=== PATIENT | female | born 2000 | race Caucasian/White ===

== ENCOUNTER 2020-07-21 23:45 | Emergency (ER) | payer MEDICAID ==
[~2020-07-21] VITALS: Ht 167.6 cm; Wt 81.6 kg
[2020-07-21 23:49] VITALS: BP 113/59
--- NOTE | 2020-07-21 23:52 | NUR ---
TO LOBBY A/W BED AMBULATORY
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
--- NOTE | 2020-07-22 01:15 | NUR ---
PT AMBULATED WITH A LIMP GAIT TO BED 11.
[2020-07-22] MEDS ORDERED: KETOROLAC 60 MG/2 ML VIAL IM ONE (01:30)
--- NOTE | 2020-07-22 01:32 | NUR ---
CONTACTED ADINA GODINEZ TO MAKE A INCIDENT REPORT. CASE # [id number] PER DISPATCH, WILL SEND A PACK OUT OPERATOR TO GET THE INCIDENT REPORT.
--- NOTE | 2020-07-22 01:40 | NUR ---
ADINA OFFICER AT BEDSIDE SPEAKING TO PTLindy
--- NOTE | 2020-07-22 02:00 | NUR ---
PT TAKEN TO CT VIA W/C.
--- NOTE | 2020-07-22 02:24 | NUR ---
PT RETURNED BACK FROM CT VIA W/C.
--- NOTE | 2020-07-22 02:30 | NUR ---
REEVALUATED PTS PAIN. PAIN LEVEL DECREASED.
[2020-07-22] MEDS ORDERED: IBUP-2213 PO (03:27)
[2020-07-22 03:47] VITALS: BP 103/60
== END 2020-07-22 03:47 | disposition home or self-care (01) ==
LOC: MED 23:45
DX: S70.01XA Contusion of right hip, initial encounter (principal); F17.200 Nicotine dependence, unspecified, uncomplicated; Y09 Assault by unspecified means; Y93.89 Activity, other specified; Y92.89 Other specified places as the place of occurrence of the external cause; Y99.8 Other external cause status
CPT/HCPCS: 72192; 73501; 96372; 99284; J1885

== ENCOUNTER 2020-09-05 09:47 | Emergency (ER) | payer MEDICAID ==
[~2020-09-05] VITALS: Ht 152.4 cm; Wt 91.6 kg
[~2020-09-05 09:47] MED LIST: IBUP-2213 PO
[2020-09-05 10:00] VITALS: BP 118/64
--- NOTE | 2020-09-05 10:05 | NUR ---
PT AMBULATED TO BED 5 AT THIS TIME.
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
--- NOTE | 2020-09-05 10:22 | NUR ---
PT CURRENTLY IN RESTROOM ACTIVELY VOMITTING
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
[2020-09-05] MEDS ORDERED: ONDANSETRON 4 MG ODT PO ONE ×2 (10:30→12:50)
--- NOTE | 2020-09-05 10:32 | NUR ---
ENGINEERING DEPARTMENT CHAIR BEDSIDE WITH PT
[2020-09-05 10:44] LABS: BASOPHILS # (AUTO) 0.1 K/uL (0.00-0.22); BASOPHILS % (AUTO) 1.1 % (0.0-2.0); EOSINOPHILS # (AUTO) 0.1 K/uL (0-0.4); EOSINOPHILS % (AUTO) 1.2 % (0.0-4.0); HEMATOCRIT 41.3 % (36-48); HEMOGLOBIN 13.8 g/dL (12.0-16.0); LYMPHOCYTES # (AUTO) 1.1 K/uL (2.5-16.5); LYMPHOCYTES % (AUTO) 17.4 % (20.5-51.1); MEAN CORPUSCULAR HEMOGLOBIN 30 pg (27-31); MEAN CORPUSCULAR HGB CONC 33 g/dL (33-37); MEAN CORPUSCULAR VOLUME 89.9 fL (80-94); MONOCYTES # (AUTO) 0.6 K/uL (0.8-1.0); MONOCYTES % (AUTO) 8.5 % (1.7-9.3); NEUTROPHILS # (AUTO) 4.7 K/uL (1.8-7.7); NEUTROPHILS % (AUTO) 71.8 % (42.2-75.2); PLATELET COUNT (AUTO) 264 K/uL (140-450); RED BLOOD CELL COUNT(AUTO) 4.59 MIL/uL (4.20-5.40); RED CELL DISTRIBUTION WIDTH 14.4 % (11.6-13.7); WHITE BLOOD COUNT (AUTO) 6.5 K/uL (4.5-11.0)
[2020-09-05 11:02] LABS: ALBUMIN 4.7 g/dL (3.4-5.0); ANION GAP 17.2 (8-16); ASPARTATE AMINOTRANSFERASE 61 U/L (15-37); CARBON DIOXIDE 24.1 mmol/L (21-32); CHLORIDE 102 mmol/L (98-107); CREATININE 0.9 mg/dL (0.6-1.3); GFR ARICAN-AMERICAN 103 mL/min (>90); GLUCOSE 101 mg/dL (74-106); POTASSIUM 4.3 mmol/L (3.5-5.1); SODIUM SERUM 139 mmol/L (136-145); TOTAL BILIRUBIN 0.5 mg/dL (0.0-1.0); UREA NITROGEN, BLOOD 12 mg/dL (7-18)
[2020-09-05 11:07] LABS: ACETAMINOPHEN < 0.5 ug/ml (10-30); SALICYLATE < 2.8 mg/dL (2.8-20.0)
--- NOTE | 2020-09-05 11:57 | NUR ---
PT RESTING WITH EYES CLOSED IN BED CURRENTLY COVERED WITH BLANKET. EQUAL CHEST RISE AND FALL NOTED. VITAL SIGNS STABLE. SISTER BEDSIDE WITH PT. BED IN LOWEST POSITION WITH SIDERAIL X1 UP AND LOCKED. WILL CONTINUE TO MONITOR
[2020-09-05] MEDS ORDERED: METOCLOPRAMIDE 10 MG TAB PO ONE (12:50)
[2020-09-05] MEDS ORDERED: NACL 0.9% 1,000 ML IV ONE (13:20)
--- NOTE | 2020-09-05 13:54 | NUR ---
PT RESTING BEDSIDE WITH SISTER. PT STATES HER HEAD CURRENTLY HURTS 09/16. VITAL SIGNS STABLE. BED IN LOWEST POSITION. SIDERAIL X1 UP. BED LOCKED. WILL CONTINUE TO MONITOR
[2020-09-05 15:28] LABS: ALBUMIN 4.2 g/dL (3.4-5.0); ANION GAP 14.8 (8-16); CARBON DIOXIDE 24.5 mmol/L (21-32); POTASSIUM 5.3 mmol/L (3.5-5.1); TOTAL BILIRUBIN 0.4 mg/dL (0.0-1.0)
--- NOTE | 2020-09-05 15:43 | NUR ---
PT RESTING CURRENTLY WITH SISTER BEDSIDE. VITAL SIGNS STABLE. BED IN LOWEST POSITION WITH SIDERAIL X1 UP AND LOCKED. WILL CONTINUE TO MONITOR
--- NOTE | 2020-09-05 16:30 | NUR ---
PT LEFT AMA. PT REFUSED FURTHER TREATMENT. IV WAS SELF REMOVED BY PT.
--- NOTE | 2020-09-05 16:54 | NUR ---
SPOKE WITH RONALD FROM [facility] CONTROL. UPADTE WAS GIVEN ON PT STATUS. PER RONALD CASE WILL BE CLOSED ON THEIR END.
[2020-09-05 17:07] VITALS: BP 113/47
== END 2020-09-05 16:30 | disposition left against medical advice (07) ==
LOC: MED 09:47
DX: T39.391A Poisoning by other nonsteroidal anti-inflammatory drugs [NSAID], accidental (unintentional), initial encounter (principal); Z79.899 Other long term (current) drug therapy; Y92.89 Other specified places as the place of occurrence of the external cause
CPT/HCPCS: 36415; 80053; 81025; 85025; 93005; 96360; 99291; G0480; J7030; J8597; Q0162